=== PATIENT | female | born 1960 | race Hispanic/Latino ===

== ENCOUNTER 2021-08-27 23:31 | Inpatient (IN) | payer MEDICARE, OTHER ==
[~2021-08-27] VITALS: Ht 149.9 cm; Wt 83.5 kg
[2021-08-27] MEDS ORDERED: CEFTRIAXONE 1 GM in SODIUM CHLORIDE 0.9% 50ML 50 ML IV ONE (23:45)
[2021-08-28] VITALS (10 sets, daily range): BP systolic 103–131; BP diastolic 62–85
[2021-08-28 00:12] LABS: BASOPHILS % 0.2 % (0.0-1.0); EOSINOPHILS % 0.3 % (0.0-6.0); HEMATOCRIT 42.4 % (34.2-44.1); HEMOGLOBIN 13.2 g/dL (12.0-16.0); LYMPHOCYTES # (AUTO) 1.5 (1.0-3.2); MEAN CORPUSCULAR HEMOGLOBIN 29.7 pg (28-32); MEAN CORPUSCULAR HGB CONC 31.1 g/dL (31-35); MEAN CORPUSCULAR VOLUME 95.3 fL (81-99); MONOCYTES # (AUTO) 0.6 (0.2-0.8); MONOCYTES % 10.6 % (4.4-11.3); NEUTROPHILS # (AUTO) 3.8 (2.1-6.9); NEUTROPHILS % 63.2 % (38.7-80.0); PLATELET COUNT 196 x10e3/uL (140-360); RED BLOOD COUNT 4.45 x10e6/uL (3.6-5.1); RED CELL DISTRIBUTION WIDTH 13.2 % (11.7-14.4)
[2021-08-28 00:18] LABS: INR 0.86; PARTIAL THROMBOPLASTIN TIME 34.6 seconds (23.8-35.5); PROTHROMBIN TIME 12.4 seconds (11.9-14.5)
[2021-08-28 00:27] LABS: ALBUMIN 3.1 g/dL (3.5-5.0); ALBUMIN/GLOBULIN RATIO 0.7 (0.8-2.0); ANION GAP 17.2 mmol/L (8-16); CALCIUM 9.3 mg/dL (8.4-10.2); CREATININE, SERUM 0.63 mg/dL (0.57-1.11); POTASSIUM 4.2 mmol/L (3.5-5.1)
[2021-08-28 00:58] LABS: CREATINE KINASE MB 0.6 ng/mL (0-5.0)
[2021-08-28] MEDS ORDERED: SODIUM CHLORIDE 0.9% 50ML 50 ML ONE (01:03)
[2021-08-28] MEDS ORDERED: IOPAMIDOL 370 MG/ML 200 ML INFUS..BTL INJ ONE (01:03)
[2021-08-28 01:13] LABS: B-TYPE NATRIURETIC PEPTIDE2 < 10.0 pg/mL (0-100)
[2021-08-28] MEDS ORDERED: DEXAMETHASONE SOD PHOS 10 MG/1 ML VIAL IV ONE (02:00)
[2021-08-28] MEDS: SODIUM CHLORIDE 0.9% 1000ML 1,000 ML IV SCH ×4 (02:00→21:45)
[2021-08-28 02:06] LABS: CLARITY,URINE CLOUDY (CLEAR); COLOR,URINE AMBER (YELLOW); KETONES,URINE 2+ (NEGATIVE); LEUKOCYTE ESTERASE ,URINE NEGATIVE (NEGATIVE); NITRITE,URINE NEGATIVE (NEGATIVE); PROTEIN,URINE DIPSTICK 1+ (NEGATIVE); URINE UROBILINOGEN 0.2 mg/dL (0.2 - 1)
[2021-08-28 02:08] LABS: BACTERIA,URINE MANY /HPF; EPITHELIAL CELLS,URINE MANY /LPF; RBC,URINE >50 /HPF (0-5)
[2021-08-28] MEDS ORDERED: GUAIFENESIN/DEXTROMETHORPHAN LIQD 5 ML UDC NG PRN (08:15)
[2021-08-28 09:12] LABS: CHOL/HDL RATIO 3.3 (3.0-3.6)
[2021-08-28] MEDS ORDERED: HYDROCODON-ACE1 EAC9 PO (09:15)
[2021-08-28] MEDS ORDERED: ASPIRIN325 MG PO (09:56)
[2021-08-28] MEDS ORDERED: FLUDROCORTISON0.1 MG PO (09:56)
[2021-08-28] MEDS ORDERED: FAMOTIDINE20 MG PO (09:56)
[2021-08-28] MEDS ORDERED: LORATADINE10 MG PO (09:56)
[2021-08-28] MEDS ORDERED: LYRICA100 MG PO (09:56)
[2021-08-28] MEDS: DEXAMETHASONE SOD PHOS 10 MG/1 ML VIAL IV SCH (11:43)
[2021-08-28] MEDS: ASCORBIC ACID 500 MG TAB PO SCH ×2 (11:44→17:13)
[2021-08-28] MEDS: CHOLECALCIFEROL 1,000 UNIT TAB PO SCH (11:44)
[2021-08-28] MEDS: BENZONATATE 100 MG CAP PO SCH ×3 (11:44→21:21)
[2021-08-28] MEDS: LORATADINE 10 MG TAB PO SCH (11:44)
[2021-08-28] MEDS: FAMOTIDINE 20 MG TAB PO SCH (11:45)
[2021-08-28] MEDS: PREGABALIN 50 MG CAP PO SCH ×2 (11:45→21:21)
[2021-08-28] MEDS: ZINC SULFATE 220 MG CAP PO SCH (11:45)
[2021-08-28] MEDS: FLUDROCORTISONE ACETATE 0.1 MG TAB PO SCH ×2 (11:45→21:21)
[2021-08-28] MEDS: HYDROCODONE/APAP 10MG-325MG TAB PO PRN ×2 (11:46→17:22)
[2021-08-28] MEDS: ASPIRIN 325 MG TAB PO SCH (11:46)
[2021-08-28] MEDS ORDERED: REMDESIVIR 100MG 200 MG in SODIUM CHLORIDE 0.9% 100 ML IV ONE (13:00)
[2021-08-28] MEDS: CEFTRIAXONE 1 GM in SODIUM CHLORIDE 0.9% 50ML 50 ML IV SCH (16:24)
[2021-08-28] MEDS: ENOXAPARIN SOD INJ 40 MG/0.4 ML SYR SC SCH (17:14)
[2021-08-29] VITALS (7 sets, daily range): BP systolic 95–116; BP diastolic 59–83
[2021-08-29 06:42] LABS: CALCIUM 9.3 mg/dL (8.4-10.2); CREATININE, SERUM 0.58 mg/dL (0.57-1.11)
[2021-08-29 07:12] LABS: BASOPHILS % 0.1 % (0.0-1.0); HEMATOCRIT 39.7 % (34.2-44.1); HEMOGLOBIN 12.7 g/dL (12.0-16.0); LYMPHOCYTES # (AUTO) 1.1 (1.0-3.2); MEAN CORPUSCULAR VOLUME 93.6 fL (81-99); MONOCYTES # (AUTO) 0.8 (0.2-0.8); MONOCYTES % 8.7 % (4.4-11.3); NEUTROPHILS # (AUTO) 6.9 (2.1-6.9); NEUTROPHILS % 78.9 % (38.7-80.0); PLATELET COUNT 242 x10e3/uL (140-360); RED BLOOD COUNT 4.24 x10e6/uL (3.6-5.1); RED CELL DISTRIBUTION WIDTH 13.2 % (11.7-14.4)
[2021-08-29] MEDS: FAMOTIDINE 20 MG TAB PO SCH ×2 (08:35→15:48)
[2021-08-29] MEDS: ASPIRIN 325 MG TAB PO SCH (08:36)
[2021-08-29] MEDS: CEFTRIAXONE 1 GM in SODIUM CHLORIDE 0.9% 50ML 50 ML IV SCH (08:36)
[2021-08-29] MEDS: DEXAMETHASONE SOD PHOS 10 MG/1 ML VIAL IV SCH (08:36)
[2021-08-29] MEDS: CHOLECALCIFEROL 1,000 UNIT TAB PO SCH (08:37)
[2021-08-29] MEDS: HYDROCODONE/APAP 10MG-325MG TAB PO PRN ×2 (08:37→15:51)
[2021-08-29] MEDS: FLUDROCORTISONE ACETATE 0.1 MG TAB PO SCH ×3 (08:37→20:27)
[2021-08-29] MEDS: PREGABALIN 50 MG CAP PO SCH ×3 (08:37→21:20)
[2021-08-29] MEDS: ZINC SULFATE 220 MG CAP PO SCH (08:37)
[2021-08-29] MEDS: BENZONATATE 100 MG CAP PO SCH ×3 (08:37→20:27)
[2021-08-29] MEDS: ASCORBIC ACID 500 MG TAB PO SCH ×2 (08:37→16:46)
[2021-08-29] MEDS: SODIUM CHLORIDE 0.9% 1000ML 1,000 ML IV SCH ×2 (12:09→16:47)
[2021-08-29] MEDS: LORATADINE 10 MG TAB PO SCH (12:10)
[2021-08-29] MEDS: REMDESIVIR 100MG 100 MG in SODIUM CHLORIDE 0.9% 100 ML IV SCH (14:18)
[2021-08-29] MEDS: ENOXAPARIN SOD INJ 40 MG/0.4 ML SYR SC SCH (16:46)
[2021-08-30] VITALS (8 sets, daily range): BP systolic 98–127; BP diastolic 68–96
[2021-08-30] MEDS: SODIUM CHLORIDE 0.9% 1000ML 1,000 ML IV SCH (03:50)
[2021-08-30] MEDS: AZITHROMYCIN 250 MG TAB PO SCH (08:51)
[2021-08-30] MEDS: FAMOTIDINE 20 MG TAB PO SCH ×2 (08:51→17:01)
[2021-08-30] MEDS: DEXAMETHASONE SOD PHOS 10 MG/1 ML VIAL IV SCH (08:51)
[2021-08-30] MEDS: FLUDROCORTISONE ACETATE 0.1 MG TAB PO SCH ×3 (08:52→21:45)
[2021-08-30] MEDS: BENZONATATE 100 MG CAP PO SCH ×3 (08:52→21:45)
[2021-08-30] MEDS: ASPIRIN 325 MG TAB PO SCH (08:52)
[2021-08-30] MEDS: CEFTRIAXONE 1 GM in SODIUM CHLORIDE 0.9% 50ML 50 ML IV SCH (08:52)
[2021-08-30] MEDS: PREGABALIN 50 MG CAP PO SCH ×3 (08:52→21:45)
[2021-08-30] MEDS: LORATADINE 10 MG TAB PO SCH (08:52)
[2021-08-30] MEDS: ASCORBIC ACID 500 MG TAB PO SCH ×2 (08:53→17:01)
[2021-08-30] MEDS: ZINC SULFATE 220 MG CAP PO SCH (08:53)
[2021-08-30] MEDS: CHOLECALCIFEROL 1,000 UNIT TAB PO SCH (08:53)
[2021-08-30] MEDS: HYDROCODONE/APAP 10MG-325MG TAB PO PRN ×2 (08:53→17:02)
[2021-08-30] MEDS: ENOXAPARIN SOD INJ 40 MG/0.4 ML SYR SC SCH (17:01)
[2021-08-30] MEDS: REMDESIVIR 100MG 100 MG in SODIUM CHLORIDE 0.9% 100 ML IV SCH (17:01)
[2021-08-31] VITALS (9 sets, daily range): BP systolic 123–134; BP diastolic 58–84
[2021-08-31] MEDS: CHOLECALCIFEROL 1,000 UNIT TAB PO SCH (08:43)
[2021-08-31] MEDS: FLUDROCORTISONE ACETATE 0.1 MG TAB PO SCH ×3 (08:43→20:43)
[2021-08-31] MEDS: ASPIRIN 325 MG TAB PO SCH (08:43)
[2021-08-31] MEDS: LORATADINE 10 MG TAB PO SCH (08:43)
[2021-08-31] MEDS: BENZONATATE 100 MG CAP PO SCH ×3 (08:43→20:43)
[2021-08-31] MEDS: CEFTRIAXONE 1 GM in SODIUM CHLORIDE 0.9% 50ML 50 ML IV SCH (08:43)
[2021-08-31] MEDS: AZITHROMYCIN 250 MG TAB PO SCH (08:43)
[2021-08-31] MEDS: ASCORBIC ACID 500 MG TAB PO SCH ×2 (08:43→16:51)
[2021-08-31] MEDS: ZINC SULFATE 220 MG CAP PO SCH (08:43)
[2021-08-31] MEDS: FAMOTIDINE 20 MG TAB PO SCH ×2 (08:43→16:51)
[2021-08-31] MEDS: DEXAMETHASONE SOD PHOS 10 MG/1 ML VIAL IV SCH (08:43)
[2021-08-31] MEDS: HYDROCODONE/APAP 10MG-325MG TAB PO PRN ×2 (09:00→15:17)
[2021-08-31] MEDS: PREGABALIN 50 MG CAP PO SCH ×3 (12:24→20:43)
[2021-08-31] MEDS: ENOXAPARIN SOD INJ 40 MG/0.4 ML SYR SC SCH (16:51)
[2021-09-01 01:16] VITALS: BP 134/77
[2021-09-01 04:47] VITALS: BP 158/74
[2021-09-01] MEDS ORDERED: Benzonatate PO (06:59)
[2021-09-01] MEDS ORDERED: ROBITUSSIN COU118 M4 PO (06:59)
[2021-09-01] MEDS ORDERED: ZINC SULFATE50 MG PO (06:59)
[2021-09-01] MEDS ORDERED: Cholecalciferol PO (06:59)
[2021-09-01] MEDS ORDERED: ASCORBIC ACID500 MG PO (06:59)
[2021-09-01 08:00] VITALS: BP 158/74
[2021-09-01] MEDS: FAMOTIDINE 20 MG TAB PO SCH (09:36)
[2021-09-01] MEDS: FLUDROCORTISONE ACETATE 0.1 MG TAB PO SCH (09:36)
[2021-09-01] MEDS: ASPIRIN 325 MG TAB PO SCH (09:36)
[2021-09-01] MEDS: ASCORBIC ACID 500 MG TAB PO SCH (09:36)
[2021-09-01] MEDS: ZINC SULFATE 220 MG CAP PO SCH (09:36)
[2021-09-01] MEDS: PREGABALIN 50 MG CAP PO SCH (09:36)
[2021-09-01] MEDS: CHOLECALCIFEROL 1,000 UNIT TAB PO SCH (09:36)
[2021-09-01] MEDS: LORATADINE 10 MG TAB PO SCH (09:36)
[2021-09-01] MEDS: BENZONATATE 100 MG CAP PO SCH (09:36)
[2021-09-01] MEDS: HYDROCODONE/APAP 10MG-325MG TAB PO PRN (09:37)
== END 2021-09-01 11:00 | disposition home or self-care (01) | DRG 177 ==
LOC: ER 23:41 → ERHOLD 08-28 02:01 → IMCU 08-28 03:29
PROVIDERS: ADMIT Internal Medicine; ATTEND Internal Medicine
PROC: 8E0ZXY6 Isolation (ICD-10-PCS; principal; 2021-08-28)
PROC: XW033E5 Introduction of Remdesivir Anti-infective into Peripheral Vein, Percutaneous Approach, New Technology Group 5 (ICD-10-PCS; 2021-08-29)
DX: U07.1 COVID-19 (principal); J12.82 Pneumonia due to coronavirus disease 2019; J96.01 Acute respiratory failure with hypoxia; J18.9 Pneumonia, unspecified organism; C85.80 Other specified types of non-Hodgkin lymphoma, unspecified site; N39.0 Urinary tract infection, site not specified; Z68.37 Body mass index [BMI] 37.0-37.9, adult; E11.9 Type 2 diabetes mellitus without complications
CPT/HCPCS: 36415; 71260; 80048; 80053; 80061; 81001; 82550; 82553; 82948; 83036; 83605; 83880; 84484; 85025; 85610; 85730; 87040; 87086; 93005; 94799; 99284; J0248; J0456; J0696; J1100; J1650; J7030; J7050; Q9967; U0002